=== PATIENT | female | born 1970 | race Hispanic/Latino ===

== ENCOUNTER 2024-03-31 09:29 | Emergency (ER) | payer BC ==
[~2024-03-31] VITALS: Ht 162.6 cm; Wt 85.3 kg
[2024-03-31 09:31] VITALS: TEMP 97.6
[2024-03-31 10:29] LABS: MEAN CORPUSCULAR HEMOGLOBIN 30.7 pg (27.0-33.0); MEAN CORPUSCULAR HGB CONC 32.5 g/dL (32.0-36.0); MEAN CORPUSCULAR VOLUME 94.6 fL (79-99); RED BLOOD CELL COUNT(AUTO) 4.23 MIL/uL (4.00-5.50); WHITE BLOOD COUNT (AUTO) 8.8 K/uL (4.8-10.8)
[2024-03-31 10:36] LABS: POTASSIUM 3.3 mmol/L (3.5-5.1)
[2024-03-31 10:38] LABS: APPEARANCE,URINE CLOUDY (CLEAR); BILIRUBIN,URINE NEGATIVE (NEGATIVE); COLOR,URINE LIGHT-ORANGE (YELLOW); GLUCOSE, URINE (UA) NEGATIVE (NEGATIVE); KETONES,URINE NEGATIVE (NEGATIVE); LEUKOCYTE ESTERASE ,URINE 25 Leu/uL (NEGATIVE); NITRATE,URINE NEGATIVE (NEGATIVE); OCCULT BLOOD,URINE LARGE (NEGATIVE); PH,URINE 7.5 (5.0-8.0); PROTEIN,URINE 20 mg/dL (NEGATIVE); UROBILINOGEN,URINE 0.2 mg/dL (0.2-1.0)
[2024-03-31 10:46] LABS: ADD UA MICROSCOPIC YES
[2024-03-31 10:49] LABS: RBC,URINE TNTC /HPF (0-1)
[2024-03-31] MEDS: ketOROlac 30MG VIAL (30MG/ML) IVP ONE (10:49)
[2024-03-31] MEDS: 0.9%NACL 1000ML 1,000 ML IV ONE (10:49)
--- NOTE | 2024-03-31 11:12 | ERN ---
General Chief Complaint: Flank Pain Stated Complaint: RT FLANK PAIN, RT GROIN PAIN, HEAMTURIA Time Seen by MD: 09:31 Source: patient History of Present Illness Initial Comments Patient is a 53-year-old female coming in to be evaluated for right flank pain. Per patient he has been having this discomfort for a couple of days. She states that the pain radiates from the right flank region to the right inguinal area. No fever or chills. Allergies: Coded Allergies: No Known Allergies (Unverified Allergy, Unknown, 03/31/24) Past Medical History Past Medical History: DVT, Kidney Stone Medical History Other: HX OF BRAIN TUMOR, PE Past Surgical History: Other, Surgical History Other: BRAIN TUMOR, HERNIA ROS Dictation CONSTITUTIONAL: No chills, no fever, no weakness, no diaphoresis, no malaise. HEAD/FACE: No signs of trauma. EENT: No eye pain, no blurred vision, no tearing, no double vision, no ear pain, no ear discharge, no nose pain, no nasal congestion, no throat pain, no throat swelling, no mouth pain. RESPIRATORY: No cough, no orthopnea, no SOB, no stridor, no wheezing. CARDIOVASCULAR: No chest pain, no edema, no palpitations, no syncope. GASTROINTESTINAL/ABDOMINAL: No abdominal pain, no constipation, no diarrhea, no nausea, no vomiting. GENITOURINARY: No abnormal discharge, no dysuria, no frequent urination, no hematuria. No complaints of pain in the genitals. MUSCULOSKELETAL: back pain, no gout, no joint pain, no joint swelling, no muscle pain, no muscle stiffness, no neck pain. INTEGUMENTARY: No change in color, no change in hair/nails, no dryness, no lesion, no lumps, no rash. NEUROLOGICAL/PSYCH: No anxiety, not depressed, no emotional problem, no headache, no numbness, no pre-existing deficit, no history of seizures, no tremors, no weakness. HEMATOLOGIC/LYMPHATIC: Not anemic, no history of blood clots, no apparent bleeding, no bruising, glands not swollen. All Systems Negative, Except as Noted. Physical Exam Physical Exam Dictation VITAL SIGNS: Reviewed. GENERAL APPEARANCE: Alert, oriented x3, no acute distress, obese. HEAD AND FACE: Non-traumatic. EYES: PERRL, pink conjunctivas, eyelid no trauma, anterior chamber clear. EARS: Pinnas intact and no signs of trauma or erythema. Ear canals clear and no discharge. TMs no erythema. NOSE: No discharge, no bleeding. OROPHARYNX: Mouth normal, teeth no caries, tongue pink. Pharynx clear, no erythema. Tonsils no exudates, no abscesses noted. Mucous membrane moist. NECK: Supple, non-tender, no thyromegaly, no masses, no JVD, no bruits. BREAST: Deferred. CHEST: No tenderness, no crepitus, no paradoxical movement, no retractions. LUNGS: Clear, well-ventilated, symmetric, no rales, no wheezing, no rhonchi, no stridor, good breath sounds bilaterally. HEART: Regular rate, regular rhythm, no murmur, no gallops. VASCULAR: No peripheral edema. ABDOMEN: Soft, positive bowel sounds, nondistended, no guarding, nontender, no rebound, no masses no hepatomegaly, no splenomegaly, no Tao's sign, no hernias. RECTAL: Deferred. GENITAL: Deferred. NEUROLOGICAL: Normal speech, gross motor function intact, gross sensory function intact. MUSCULOSKELETAL: Neck nontender, full range of motion, back nontender, full range of motion. EXTREMITIES: Nontender, full range of motion. SKIN: Color pink, dry, no turgor, no rash, no lacerations, no abrasions, no contusions. LYMPHATICS: Deferred. Results Laboratory and Microbiology Lab and Micro Result Laboratory Tests Test 03/31/24 10:00 White Blood Count 8.8 K/uL (4.8-10.8) Red Blood Count 4.23 MIL/uL (4.00-5.50) Hemoglobin 13.0 g/dL (12.0-16.0) Hematocrit 40.0 % (36-48) Mean Corpuscular Volume 94.6 fL (79-99) Mean Corpuscular Hemoglobin 30.7 pg (27.0-33.0) Mean Corpuscular Hemoglobin Concent 32.5 g/dL (32.0-36.0) Red Cell Distribution Width 12.0 % (11.0-15.5) Platelet Count 363 K/uL (130-400) Mean Platelet Volume 10.0 fL (7.5-10.5) Nucleated Red Blood Cells 0.0 % (0.0-0.19) Urine Color LIGHT-ORANGE (YELLOW) Urine Appearance CLOUDY (CLEAR) H Urine pH 7.5 (5.0-8.0) Urine Specific [place] 1.023 (1.001-1.031) Urine Protein 20 mg/dL (NEGATIVE) H Urine Glucose (UA) NEGATIVE mg/dL (NEGATIVE) Urine Ketones NEGATIVE mg/dL (NEGATIVE) Urine Occult Blood LARGE (NEGATIVE) H Urine Nitrate NEGATIVE (NEGATIVE) Urine Bilirubin NEGATIVE mg/dL (NEGATIVE) Urine Urobilinogen 0.2 mg/dL (0.2-1.0) Urine Leukocyte Esterase 25 Amadou/uL (NEGATIVE) H Urine RBC TNTC /HPF (0-1) H Urine WBC 11-25 /HPF (0-1) H Urine Bacteria None /HPF (None Seen) Sodium Level 143 mmol/L (136-145) Potassium Level 3.3 mmol/L (3.5-5.1) L Chloride Level 105 mmol/L (101-111) Carbon Dioxide Level 31 mmol/L (21-32) Blood Urea Nitrogen 14 mg/dL (7-18) Creatinine 1.0 mg/dL (0.5-1.0) Glomerular Filtration Rate Calc 68 mL/min (>90) Random Glucose 91 mg/dL (70-105) Total Calcium 9.2 mg/dL (8.5-10.1) Labs Reviewed?: Yes EKG/XRAY/US/CT/MRI CT Scan Comment [place] [id number] [place] [address] IMAGING REPORT Signed PATIENT: FLORINDA BANG JR MR#: [id number] : 02/18/1956 SEX: M AGE: 68 LOCATION: [facility] ORDER 7 STATUS: REG REPORT#: [id number] SERVICE 6 REASON: abd distention ORDERING PHYSICIAN: DEVANTE FUENTES MD PROCEDURE: ABD PEL WO - CT ABDOMEN/PELVIS W/O CONTRAST CT ABDOMEN/PELVIS W/O CONTRAST REASON: abd distention COMPARISON: 05/01/2022 FINDINGS: Lung bases are clear. There are no focal liver lesions. There are normal-appearing kidneys.. Spleen and pancreas appear unremarkable. There has been a previous cholecystectomy. There are markedly dilated proximal and mid small bowel loops consistent with obstruction. There is a transition zone to normal caliber distal small bowel loops. There are 2 small ventral hernias, both near the umbilicus, each contain a small bowel loop. It is unclear whether this is the etiology of the obstruction. Colon appears unremarkable. This includes normal appearance of the appendix There is no evidence of free fluid or intraperitoneal air. There are no focal fluid collections. Aorta and retroperitoneum appear normal as do pelvic soft tissue structures. The anterior abdominal wall is intact. Osseous structures appear unremarkable. IMPRESSION: 1. Moderate to marked fluid-filled distention of proximal and mid small bowel loops with a transition zone consistent with mechanical obstruction. 2. There are 2 small periumbilical ventral hernias, the right is unclear whether these are the etiology of the obstruction. 3. Small hiatal hernia. 4. Absent gallbladder. CT was performed with one or more following dose reduction techniques: automated exposure control, adjustment of the mA and kv according to patient's size, or use of a iterative reconstruction technique. DICTATED BY: EDUARDO DORSEY MD DATE: 03/31/24 1109 ELECTRONICALLY SIGNED BY: EDUARDO DORSEY MD DATE: 03/31/24 1114 [facility] MDM: Differential diagnosis: Nephrolithiasis, ureterolithiasis , kidney stone, Patient is a 53-year-old female coming in to be evaluated for right flank pain. Dinner location of the pain in the right CVA angle area CT was performed to rule out a kidney stone which she was observed to have a 5 mm proximal ureter kidney stone. IV fluids and Toradol were given patient states her symptoms improved significantly. Patient will be discharged in stable condition with a diagnosis of nephrolithiasis. I advised her appropriate follow up with PCP in 1-2 days as well as urologist. ED Course Orders Procedure Category Date Status Time Cbc Without LAB 03/31/24 Complete Differential 09:48 Basic Metabolic Panel LAB 03/31/24 Complete 09:48 Urinalysis Profile LAB 03/31/24 Complete 09:48 Ct Abdomen/Pelvis W/O CT 03/31/24 Resulted Contrast 10:33 Ketorolac PHA 03/31/24 Complete Tromethamine 30mg/Ml 11:00 0.9%Nacl 1000ml (Ns PHA 03/31/24 Complete 1000ml) 11:00 Culture Urine CINDY 03/31/24 In Process 10:50 Tamsulosin Hcl PHA 03/31/24 In Process (Flomax) 12:00 Current Medications Medications (Trade) Dose Ordered Sig/Pee Route PRN Reason Start Time Stop Time Status Last Admin Dose Admin Ketorolac Tromethamine (toRADol) 30 mg ONCE ONCE IVP 03/31/24 11:00 03/31/24 11:01 DC 03/31/24 10:49 Sodium Chloride 1,000 ml @ 0 mls/hr ONCE ONCE IV 03/31/24 11:00 03/31/24 11:01 DC 03/31/24 10:49 Tamsulosin HCl (FloMAX) 0.4 mg ONCE ONCE PO 03/31/24 12:00 03/31/24 12:01 Vital Signs Date Time Temp Pulse Resp B/P (MAP) Pulse Ox O2 Delivery O2 Flow Rate FiO2 03/31/24 11:36 66 16 123/71 100 Room Air* 0 21 03/31/24 09:31 97.5 95 16 141/86 100 Room Air 0 DX & DISP Disposition: Discharge Departure Impression: Primary Impression: Ureterolithiasis Additional Impression: Kidney stone Condition: Stable Scripts Cephalexin Monohydrate (Keflex) 500 Mg Cap 1 CAP PO BID for 10 Days, #20 CAP 0 Refills Prov: DEVANTE FUENTES MD 03/31/24 Tamsulosin HCl (Flomax) 0.4 Mg Cap.er.24h 1 CAP PO DAILY for 7 Days, #7 CAP 0 Refills Prov: DEVANTE FUENTES MD 03/31/24 Ketorolac Tromethamine (Ketorolac Tromethamine) 10 Mg Tablet 1 TAB PO Q6HPRN PRN for pain for 5 Days, #20 TAB 0 Refills Prov: DEVANTE FUENTES MD 03/31/24 Additional Instructions: FOLLOW-UP WITH PRIMARY CARE PROVIDER IN 1 TO 2 DAYS. TAKE MEDICATIONS DIRECTED HERE IN THE EMERGENCY ROOM. OKAY TO CONTINUE HOME MEDICATIONS UNLESS OTHERWISE DISCUSSED DURING YOUR VISIT IN THE EMERGENCY ROOM TODAY. RETURN TO YOUR NEAREST EMERGENCY ROOM IF SYMPTOMS WORSEN OR IF THERE IS NO IMPROVEMENT. CALL 911 IF YOU NEED IMMEDIATE ASSISTANCE. TAKE TYLENOL [id number] NEEDED AND IF NO CONTRAINDICATIONS ARE PRESENT. INCREASE ORAL HYDRATION. A WOUND CULTURE OR URINE CULTURE WAS ORDERED HERE IN THE EMERGENCY ROOM DEPARTMENT PLEASE FOLLOW-UP WITH PRIMARY CARE PROVIDER AND ADVISE THEM TO GET REPEAT PORTS FROM OUR FACILITY. IF YOU HAD ANY BINH WRAP/SPLINTS THAT WERE APPLIED HERE, PLEASE DO NOT REMOVE THEM UNTIL YOU SEE YOUR PRIMARY CARE OR SPECIALTY. Referrals: Referrals: ALVAREZ CLARKE MD, LUIS A MD Time of Disposition: 11:58 DEVANTE FUENTES MD Mar 31, 2024 11:12
[2024-03-31 11:36] VITALS: BP 123/71; PULSE 66; RESP 16; O2SAT 100
--- NOTE | 2024-03-31 11:40 | HMCIMG ---
CT ABDOMEN/PELVIS W/O CONTRAST REASON: flank pain COMPARISON: None. FINDINGS: Lung bases are clear. There are no focal liver lesions. The liver is not enlarged.. Spleen and pancreas appear unremarkable. The gallbladder appears normal as well. There are multiple bilateral small kidney stones. There is mild right hydronephrosis. There is a 5 mm stone in the proximal right ureter just below level of the lower pole of the right kidney. There is no evidence of ureteral stone on the left. Urinary bladder appears unremarkable. There is marked sigmoid diverticulosis without evidence of diverticulitis. Bowel loops appear otherwise unremarkable. This includes normal appearance of the appendix There is no evidence of free fluid or intraperitoneal air. There are no focal fluid collections. Aorta and retroperitoneum appear normal as do pelvic soft tissue structures. The anterior abdominal wall is intact. Osseous structures appear unremarkable. IMPRESSION: 1. 5 mm stone in the proximal right ureter at the level of the lower pole of the right kidney, there is mild right hydronephrosis. 2. There are multiple additional nonobstructing small stones in each kidney. 3. Moderate to marked sigmoid diverticulosis without evidence of diverticulitis. CT was performed with one or more following dose reduction techniques: automated exposure control, adjustment of the mA and kv according to patient's size, or use of a iterative reconstruction technique.
[2024-03-31] MEDS ORDERED: CEPH500B PO (11:59)
[2024-03-31] MEDS ORDERED: TAMS-1 PO (11:59)
[2024-03-31] MEDS ORDERED: KETO10TA2 PO (11:59)
[2024-03-31] MEDS: tamSULOsin HCL 0.4 MG CAP.ER.24H PO ONE (12:41)
--- NOTE | 2024-03-31 12:51 | NUR ---
PT DISCHARGED ADVISED TO FU WITH PCP IN 1-2 DAYS, RETURN IF SYMPTOMS WORSEN, FU WITH UROLOGIST, AND URINE STRIANER PROVIDED
== END 2024-03-31 12:51 | disposition home or self-care (01) ==
LOC: EDH 09:29
DX: N13.2 Hydronephrosis with renal and ureteral calculous obstruction (principal); K57.30 Diverticulosis of large intestine without perforation or abscess without bleeding; Z98.890 Other specified postprocedural states
CPT/HCPCS: 99284; 74176; 96374; 96361; 80048; 85027; 87086; 81001; 36415; J1885; J7030